=== PATIENT | female | born 1985 | race Caucasian/White ===

== ENCOUNTER → 2020-11-06 | Outpatient (CLI) | payer OTHER ==
[~2020-11-06] MED LIST: BACTRIM DS TAB1 EACH PO; NORCO 5-325 TA1 EACH PO; NUVARING VAGIN1 EACH VG
== END ==
LOC: HEART 5 10:57
DX: R07.9 Chest pain, unspecified (principal)
CPT/HCPCS: 93306

== ENCOUNTER → 2022-06-29 | Outpatient (CLI) | payer OTHER | LOC: KOH-I 16:16 | DX: R05.9 Cough, unspecified (principal) | CPT/HCPCS: 71046 ==